=== PATIENT | male | born 1960 | race Two or more races ===

== ENCOUNTER 2021-02-18 11:27 | Emergency (ER) | payer OTHER ==
[~2021-02-18] VITALS: Ht 182.9 cm; Wt 92.1 kg
== END 2021-02-18 15:18 | disposition home or self-care (01) ==
LOC: ER 11:27 → CPU-OBS 12:11 → ER 12:11
DX: R07.89 Other chest pain (principal); R42 Dizziness and giddiness; Z11.52 Encounter for screening for COVID-19
CPT/HCPCS: G0378; G0379; 93005; 70450

== ENCOUNTER 2024-12-19 21:19 | Emergency (ER) | payer OTHER ==
[~2024-12-19] VITALS: Ht 182.9 cm; Wt 95.3 kg
[2024-12-19] MEDS ORDERED: NEURONTIN300 MG PO (21:26)
[2024-12-20 00:07] LABS: HEMATOCRIT 45.9 % (39.0-48.0); MEAN CELL VOLUME 87.1 fL (80.0-100.00); MEAN CORPUSCULAR HEMOGLOBIN 28.5 pg (27.00-32.0); MEAN CORPUSCULAR HGB CONC 32.7 g/dl (32.0-36.0); PLATELET COUNT 243 K/uL (150-450); RED BLOOD COUNT 5.27 M/uL (4.00-6.00); RED CELL DISTRIBUTION WIDTH 12.9 % (11.5-14.5)
[2024-12-20 00:26] LABS: ALBUMIN 3.6 gm/dL (3.4-5.0); BILIRUBIN TOTAL 0.89 mg/dL (0.3-1.2); CALCIUM 9.3 mg/dL (8.5-10.1); CREATININE SERUM 1.14 mg/dL (0.70-1.30); GFR 64.67; GLOBULINA 3.6 G/DL (2.4-3.5); POTASSIUM 3.68 mEq/L (3.5-5.1); TOTAL PROTEIN 7.2 gm/dL (6.4-8.2)
[2024-12-20] MEDS ORDERED: CEFTRIAXONE SODIUM 1,000 MG VIAL IV ONE (00:45)
[2024-12-20 00:49] LABS: PH,URINE 5.5 (5.0-8.0); URINE APPEARANCE Cloudy; URINE BILIRRUBIN Negative (NEGATIVE); URINE BLOOD Moderate; URINE COLOR Yellow; URINE KETONE Trace (NEGATIVE); URINE LEUKOCYTE Moderate; URINE NITRATE Negative; URINE PROTEIN 30 (NEGATIVE)
[2024-12-20 00:54] LABS: URINE BACTERIA 105.2 uL (0.0-1933); URINE EPITHELIAL CELLS 2.6 uL (0.0-38.8); URINE GLUCOSE 500 MG/DL (NEGATIVE); URINE RBC 113.8 uL (0.0-20.8); URINE WBC 1503.6 uL (0.0-23.2)
[2024-12-20] MEDS ORDERED: 0.9 % SODIUM CHLORIDE 500 ML IV ONE (01:00)
[2024-12-20] MEDS ORDERED: CEFTRIAXONE SODIUM 1,000 MG VIAL ONE (01:10)
== END 2024-12-20 03:07 | disposition home or self-care (01) ==
LOC: ER 21:22
PROVIDERS: Preventive Medicine Public Health & General Preventive Medicine
DX: N39.0 Urinary tract infection, site not specified (principal); Z91.041 Radiographic dye allergy status
CPT/HCPCS: 36415; 74176; 96365; 96366; 99284; J0696; J7042

== ENCOUNTER 2024-12-27 07:31 | Outpatient (CLI) | payer OTHER ==
[~2024-12-27 07:31] MED LIST: NEURONTIN300 MG PO
== END 2024-12-27 07:47 | disposition home or self-care (01) ==
LOC: SONOGRAMA 07:31
PROVIDERS: ATTEND General Practice
DX: R97.20 Elevated prostate specific antigen [PSA] (principal)